=== PATIENT | male | born 1935 | race Two or more races ===

== ENCOUNTER 2024-01-20 03:59 | Inpatient (IN) | payer MEDICARE, MEDICAID ==
[~2024-01-20] VITALS: Ht 167.6 cm; Wt 67.0 kg
[2024-01-20 04:30] LABS: Basophils # (auto) 0 10 ^3/uL (0-0.2); Basophils % (auto) 0.5 % (0.0-2.0); Eosinophils # (auto) 0 10 ^3/uL (0-0.8); Eosinophils % (auto) 0.7 % (0.0-7.0); Hematocrit 31.5 % (41.0-53.0); Hemoglobin 11.2 g/dL (13.5-17.5); Lymphocytes # (auto) 0.9 10 ^3/uL (0.4-5.4); Lymphocytes % (auto) 22.5 % (10.0-50.0); Mean Corpuscular Hemoglobin 31.4 pg (28.0-32.0); Mean Corpuscular Hgb Conc. 35.6 g/dL (32.0-36.0); Mean Corpuscular Volume 88.2 fL (80.0-100.0); Monocytes # (auto) 0.4 10 ^3/uL (0-1.3); Monocytes % (auto) 9.7 % (0.0-12.0); Neutrophils # (auto) 2.7 10 ^3/uL (1.6-8.6); Neutrophils % (auto) 66.6 % (37.0-80.0); Nucleated Red Blood Cells % 0.2 %; Red Blood Cells 3.57 10^6/uL (4.5-5.90); Red Cell Distribution Width 16.5 % (11.8-14.3); White Blood Cell 4.1 10^3/uL (4.4-10.8)
[2024-01-20] MEDS ORDERED: ONDANSETRON HCL 4 MG/2 ML VIAL IV ONE (04:30)
[2024-01-20 04:47] LABS: INR 1.08 (0.9-1.15); Partial Thromboplastin Time 39.3 SEC (24.5-34.5); Prothrombin Time 11.4 sec (9.3-11.8)
[2024-01-20 04:51] LABS: Alanine Aminotransferase 19 U/L (7-40); Albumin 3.4 g/dL (3.2-4.8); Alkaline Phosphatase 95 U/L (46-116); Anion Gap 7 (5-15); Aspartate Aminotransferase 25 U/L (13-40); BUN/Creatinine Ratio 9.2 (10.0-20.0); Bilirubin, Total 0.9 mg/dL (0.2-1.0); Blood Urea Nitrogen 10 mg/dL (9-23); Calcium 8.8 mg/dL (8.7-10.4); Carbon Dioxide 21 mmol/L (20-30); Chloride 104 mmol/L (98-107); Glucose 104 mg/dL (74-106); Magnesium 1.9 mg/dL (1.6-2.6); Potassium 3.9 mmol/L (3.5-5.1); Sodium 132 mmol/L (136-145); Total Protein 6.1 g/dL (5.7-8.2)
[2024-01-20] MEDS: METOCLOPRAMIDE HCL 5MG/ml INJ 2ml VIAL IV ONE (05:41)
[2024-01-20] MEDS: MORPHINE SULFATE 4 MG/ML SYR/VIAL IV ONE (05:42)
[2024-01-20 06:04] VITALS: PULSE 71; O2SAT 92
[2024-01-20 07:33] VITALS: PULSE 70; RESP 13; O2SAT 93
[2024-01-20] MEDS: NITROGLYCERIN 0.4 MG SL TAB SL ONE (07:47)
[2024-01-20] MEDS: ASPirin 325 MG TAB PO ONE (08:08)
[2024-01-20] MEDS ORDERED: MORPHINE SULFATE 4 MG/ML SYR/VIAL IV PRN (09:15)
[2024-01-20] MEDS ORDERED: ONDANSETRON HCL 4 MG/2 ML VIAL IV PRN (09:15)
[2024-01-20] MEDS ORDERED: NITROGLYCERIN 0.4 MG SL TAB SL PRN (09:15)
[2024-01-20] MEDS ORDERED: ACETAMINOPHEN 325 MG TAB PO PRN (09:15)
[2024-01-20 10:37] LABS: INR 1.08 (0.9-1.15); Prothrombin Time 11.4 sec (9.3-11.8)
[2024-01-20] MEDS: ASPirin 81 mg TAB PO SCH (10:47)
[2024-01-20] MEDS: DOCUSATE SOD 100 MG CAP PO SCH (10:52)
[2024-01-20] MEDS: PANTOPRAZOLE 40 MG/10 ML VIAL INJ IV ONE (11:33)
[2024-01-20 15:35] LABS: Urine Bacteria FEW /hpf (None Seen); Urine Blood Negative /uL (Negative); Urine Clarity Clear (Clear); Urine Color Light-Yellow (Yellow); Urine Protein, UAD Negative (Negative); Urine Specific Gravity 1.006 (1.001-1.035); Urine Urobilinogen Normal (Negative); Urine WBC 26 /hpf (0 - 3); Urine pH 6.5 (5.0-9.0)
[2024-01-20] MEDS: TAMSULOSIN HYDROCHLORIDE 0.4 MG CAP PO SCH (18:04)
[2024-01-20 18:34] VITALS: BP 112/67; PULSE 74; RESP 16; TEMP 98.3; O2SAT 93
[2024-01-20] MEDS ORDERED: OMEP-434 PO (20:11)
[2024-01-20] MEDS ORDERED: IRBE300T79 PO (20:11)
[2024-01-20] MEDS ORDERED: SUCR1SUS25 PO (20:11)
[2024-01-20] MEDS ORDERED: CALC600T49 PO (20:11)
[2024-01-20] MEDS ORDERED: SERT25TA84 PO (20:11)
[2024-01-20] MEDS ORDERED: TAMS0.4C36 PO (20:11)
[2024-01-20] MEDS ORDERED: BUSP15TA60 PO (20:11)
[2024-01-20] MEDS ORDERED: CLOP75TA70 PO (20:11)
[2024-01-20 20:30] VITALS: PULSE 69; PULSE 70; RESP 18; O2SAT 93
[2024-01-20 21:00] VITALS: BP 147/65; PULSE 69; RESP 18; TEMP 97.1; O2SAT 93
[2024-01-20] MEDS: ATORVASTATIN 20 MG TAB PO SCH (21:36)
[2024-01-21 01:00] VITALS: BP 150/70; PULSE 71; RESP 18; TEMP 97.2; O2SAT 94
[2024-01-21 04:45] VITALS: BP 127/67; PULSE 84; RESP 18; TEMP 98.2; O2SAT 93
[2024-01-21 05:47] LABS: Basophils # (auto) 0 10 ^3/uL (0-0.2); Basophils % (auto) 0.4 % (0.0-2.0); Eosinophils # (auto) 0 10 ^3/uL (0-0.8); Eosinophils % (auto) 0.6 % (0.0-7.0); Hemoglobin 11.8 g/dL (13.5-17.5); Lymphocytes # (auto) 0.8 10 ^3/uL (0.4-5.4); Lymphocytes % (auto) 17.2 % (10.0-50.0); Mean Corpuscular Hgb Conc. 34.8 g/dL (32.0-36.0); Mean Corpuscular Volume 89.2 fL (80.0-100.0); Monocytes # (auto) 0.5 10 ^3/uL (0-1.3); Monocytes % (auto) 11.4 % (0.0-12.0); Neutrophils # (auto) 3.1 10 ^3/uL (1.6-8.6); Neutrophils % (auto) 70.4 % (37.0-80.0); Nucleated Red Blood Cells % 0.4 %; Red Blood Cells 3.81 10^6/uL (4.5-5.90); Red Cell Distribution Width 16.8 % (11.8-14.3); White Blood Cell 4.4 10^3/uL (4.4-10.8)
[2024-01-21 06:04] LABS: Alanine Aminotransferase 17 U/L (7-40); Albumin 3.4 g/dL (3.2-4.8); Alkaline Phosphatase 100 U/L (46-116); Anion Gap 6 (5-15); Aspartate Aminotransferase 28 U/L (13-40); BUN/Creatinine Ratio 8.6 (10.0-20.0); Blood Urea Nitrogen 10 mg/dL (9-23); Calcium 8.9 mg/dL (8.5-10.1); Carbon Dioxide 24 mmol/L (20-30); Chloride 104 mmol/L (98-107); Glucose 87 mg/dL (74-106); LDL Cholesterol 75 mg/dL (< 100); Potassium 4.2 mmol/L (3.5-5.1); Sodium 134 mmol/L (136-145); Triglycerides 95 mg/dL (< 150)
[2024-01-21 06:05] LABS: Bilirubin, Total 0.8 mg/dL (0.2-1.0); Cholesterol 116 mg/dL (< 200); HDL Cholesterol 29 mg/dL (40-59); Total Protein 6.3 g/dL (5.7-8.2)
[2024-01-21 08:00] VITALS: PULSE 70
[2024-01-21] MEDS: PANTOPRAZOLE 40 MG/10 ML VIAL INJ IV SCH (08:34)
[2024-01-21] MEDS: ENOXAPARIN SOD 40 MG/0.4 ML SYRINGE SC SCH (08:35)
[2024-01-21 09:00] VITALS: BP 145/68; PULSE 86; RESP 16; TEMP 97.8; O2SAT 99
[2024-01-21 12:41] VITALS: BP 130/48; PULSE 67; RESP 16; TEMP 97.9; O2SAT 98
[2024-01-21] MEDS: LACTULOSE 20Gm/30ML SOLN PO ONE (14:39)
[2024-01-21 17:14] VITALS: BP 116/67; PULSE 101; RESP 16; TEMP 98.6; O2SAT 98
== END 2024-01-21 17:49 | disposition home or self-care (01) | DRG 313 ==
LOC: ER 03:59 → TELE 10:47 → TELE-CENTR 10:47
PROVIDERS: ADMIT Nurse Practitioner Family; ATTEND Nurse Practitioner Acute Care
DX: R07.89 Other chest pain (principal); I27.20 Pulmonary hypertension, unspecified; F32.A Depression, unspecified; E78.5 Hyperlipidemia, unspecified; F41.1 Generalized anxiety disorder; I10 Essential (primary) hypertension; N40.0 Benign prostatic hyperplasia without lower urinary tract symptoms; K21.9 Gastro-esophageal reflux disease without esophagitis; Z95.0 Presence of cardiac pacemaker; Z89.612 Acquired absence of left leg above knee; Z90.49 Acquired absence of other specified parts of digestive tract
CPT/HCPCS: 36415; 71045; 80053; 80061; 81001; 83735; 83880; 84484; 85025; 85610; 85730; 93005; 93306; 96374; 96375; C9113; G0378